=== PATIENT | male | born 1970 | race Caucasian/White ===

== ENCOUNTER 2017-04-15 07:51 | Emergency (ER) | payer BC ==
[2017-04-15 07:56] VITALS: BP 119/92; BMI 25.8
--- NOTE | 2017-04-15 08:25 | DR.GENAD ---
HPI - PCP Primary Care Physician: Emmanuel - Complaint/Symptoms Chief Complaint:: Pt is c/o flank pain, n/v, dirrhea, and upper stomach pain that started 2 days ago Self Treatment fo Chief Complaint: AZO - Nurses notes reviewed Nurses Notes Review: Yes - Source History Provided: Patient - Mode of Arrival Mode of Arrival: Ambulatory - Timing Onset of Chief Complaint: 04/13/17 Came on: Gradually - Duration Duration: Intermittent How lon Duration: Days - Location Location: stomach - Severity Severity: Moderate - Modifying Factors Worsens:: vomiting - Associated Signs and Symptoms Associated Signs and Symptoms: Vomiting and diarrhea - Other History Other History: Hiatal hernia, GERD PMH - PMH Past Medical History: Yes Past Medical History: GERD Past Surgical History: Yes Surgical History: Ortho Surgery, Tonsillectomy - Family History History of Family Medical Conditions: Yes Family Medical History: Diabetes Mellitus, Cancer, [place], Heart Failure, Hypertension - Social History Does patient currently use any type of tobacco product: Yes Have you used tobacco products in the last 12 months: Yes Type of Tobacco Use: Smokeless Does any household member use tobacco: No Alcohol Use: Rarely Do you use any recreational Drugs:: No Lives With: Family Lives Where: Home - infectious screening In the last 2 months have you had wt loss of >10#?: NO Have you had fever, night sweats or hemotysis?: No Have you traveled outside the country in the last 6 months?: No Isolation: Standard ROS - Review of Systems Constitutional: No Symptoms Reported Eyes: No Symptoms Reported ENTM: No Symptoms Reported Respiratoy: No Symptoms Reported Cardiovascular: No Symptoms Reported Gastrointestinal/Abdominal: Abdominal Pain, Diarrhea, Vomiting Genitourinary: No Symptoms Reported Neurological: No Symptoms Reported Musculoskeletal: No Symptoms Reported Integumentary: No Symptoms Reported Hematologic/Lymphatic: No Symptoms Reported Endocrine: No Symptoms Reported Psychiatric: No Symptoms Reported All Other Systems: Reviewed and Negative PE - Vital Signs Vitals: Temperature 97.5 F Pulse Rate 96 Respiratory Rate 18 Blood Pressure 119/92 O2 Sat by Pulse Oximetry 98 - General Limitations: No Limitations General Appearance: Alert, In No Apparent Distress - Head Head Exam: Normal Inspection - Eyes Eye exam: Normal Appearance, EOMI. negative: Scleral Icterus, Conjunctival Injection - ENT ENT Exam: Normal Exam, Normal Oropharynx External Ear Exam: Normal External Inspection Mouth Exam: Normal Inspection Throat Exam: Normal Inspection - Neck Neck Exam: Normal Inspection, Full ROM, Trachea Midline - Chest Chest Inspection: Normal Inspection - Respiratory Respiratory Exam: Normal Lung Sounds Bilat. negative: Accessory Muscle Use, Respiratory Distress Respiratory Exam: Bilateral Clear to Auscultation - Cardiovascular Cardiovascular Exam: Regular Rate - Abdominal Exam Abdominal Exam: Normal Inspection, Normal Bowel Sounds, Soft. negative: Distention, Tenderness, Guarding, Rebound Abdominal Tenderness: Epigastrium - Extremities Extremities Exam: Normal Inspection, Full ROM - Back Back Exam: Normal Inspection - Neurologic Neurological Exam: Alert, Oriented X3, CN II-XII Intact - Psychiatric Psychiatric Exam: Anxious - Skin Skin Exam: Intact, Normal Color ROR - Labs Reviewed Result Diagrams: 04/15/17 09:04/15/17 09: Laboratory: WBC 4.9 X10^3/uL (3.6-10.0) 04/15/17 09: RBC 4.90 X10^6/uL (4.7-6.0) 04/15/17: Hgb 14.1 g/dL (13.5-18.0) 04/15/17: Hct 41.8 % (42.0-54.0) L 04/15/17 09: MCV 85.2 fL (80.0-100.0) 04/15/17: MCH 28.9 pg (27.0-34.0) 04/15/17 09: MCHC 33.9 g/dL (33.0-35.0) 04/15/17: RDW 13.4 % (11.6-16.5) 04/15/17: Plt Count 198 X10^3/uL (150.0-450.0) 04/15/17: MPV 9.5 fL (7.4-11.0) 04/15/17: Neut % 63.6 % (42.0-75.0) 04/15/17: Lymph % 20.0 % (21.0-51.0) L 04/15/17: Otero % 13.4 % (0.0-13.0) H 04/15/17: Eos % 2.5 % (0.9-2.9) 04/15/17: Baso % 0.5 % (0.2-1.0) 04/15/17 09: Neut # 3.1 x10^3/uL (2.2-4.8) 04/15/17 09: Lymph # 1.0 X10^3/uL (1.3-2.9) L 04/15/17 09:17 Otero # 0.7 x10^3/uL (0.3-0.8) 04/15/17 09: Eos # 0.1 x10^3/uL (0.0-0.2) 04/15/17 09: Baso # 0.0 X10^3/uL (0.0-0.1) 04/15/17 09: Absolute Nucleated RBC 0.1 /100WBC 04/15/17 09: Sodium 141 mmol/L (136-145) 04/15/17 09:17 Corrected Sodium TNP 04/15/17 09: Potassium 3.8 mmol/L (3.5-5.1) 04/15/17 09: Chloride 106 mmol/L (98-107) 04/15/17 09:17 Carbon Dioxide 29.9 mmol/L (21-32) 04/15/17 09:17 BUN 12 mg/dL (7-18) 04/15/17 09:17 Creatinine 1.05 mg/dL (0.70-1.30) 04/15/17 09:17 Est GFR (MDRD) Af Amer > 60 (>60) 04/15/17 09:17 Est GFR (MDRD) Non-Af > 60 (>60) 04/15/17 09: Glucose 106 mg/dL (65-99) H 04/15/17 09:17 Calcium 8.5 mg/dL (8.5-10.1) 04/15/17 09:17 Corrected Calcium TNP 04/15/17 09:17 Total Bilirubin 0.60 mg/dL (0.2-1.0) 04/15/17 09:17 AST 21 Units/L (15-37) 04/15/17 09:17 ALT 34 Units/L (12-78) 04/15/17 09:17 Alkaline Phosphatase 80 Units/L (46-116) 04/15/17 09:17 Total Protein 6.8 g/dL (6.4-8.2) 04/15/17 09:17 Albumin 3.4 g/dL (3.4-5.0) 04/15/17 09:17 Globulin 3.4 g/dL (2.5-4.5) 04/15/17 09:17 Albumin/Globulin Ratio 1.0 Ratio (1.1-2.1) L 04/15/17 09:17 Amylase 33 Units/L (25-115) 04/15/17 09: Lipase 94 Units/L (73-393) 04/15/17 09:17 - XRAY XRAY Interpreted by: Radiologist XRAY Findings: AAS: normal - Diagnosis Discharge Problem: Gastroenteritis and colitis, viral - Discharge Plan Condition: Stable Prescriptions: Ondansetron [Zofran Odt] 4 mg PO Q8H PRN #12 tab PRN Reason: Nausea/Vomiting Sucralfate [Carafate Susp 1 gm/10 ml] 1 gm PO ACHS #420 ml - Follow ups/Referrals Follow ups/Referrals: Wisam Benitez [Primary Care Provider] - 3 days - Instructions
[2017-04-15] MEDS ORDERED: NS 1000 ML 1,000 ML IV ONE (08:37)
[2017-04-15] MEDS ORDERED: NS 1000 ML 1,000 ML ONE (08:48)
--- NOTE | 2017-04-15 08:56 | RAD ---
HISTORY: Abdominal pain Study: Acute abdominal series Comparison: None Findings: The trachea is midline. The cardiac silhouette is unremarkable. The lungs are clear without focal infiltrate or effusion. The bony thorax is unremarkable. Flat plate and upright evaluation of the abdomen demonstrates a normal bowel gas pattern. No pneumop eritoneum is identified.. No pathological soft tissue mass or calcification can be observed. The b singh structures are grossly intact. IMPRESSION: 1. No acute cardiopulmonary disease. 2. No evidence for acute abdominal pathology identified. Reported By:
[2017-04-15] MEDS ORDERED: PROTONIX INJ 40 MG VIAL IVP ONE (09:21)
[2017-04-15] MEDS ORDERED: ZOFRAN INJ 4 MG VIAL IVP ONE (09:21)
[2017-04-15] MEDS ORDERED: ZOFRAN INJ 4 MG VIAL ONE ×2 (09:33→09:35)
[2017-04-15] MEDS ORDERED: PROTONIX INJ 40 MG VIAL ONE ×2 (09:33→09:35)
[2017-04-15 09:36] LABS: ALANINE AMINOTRANSFERASE 34 Units/L (12-78); ALBUMIN 3.4 g/dL (3.4-5.0); ALKALINE PHOSPHATASE 80 Units/L (46-116); AMYLASE 33 Units/L (25-115); ASPARTATE AMINO TRANSFERASE 21 Units/L (15-37); BLOOD UREA NITROGEN 12 mg/dL (7-18); CALCIUM 8.5 mg/dL (8.5-10.1); CARBON DIOXIDE 29.9 mmol/L (21-32); CHLORIDE 106 mmol/L (98-107); CREATININE 1.05 mg/dL (0.70-1.30); GLUCOSE 106 mg/dL (65-99); LIPASE 94 Units/L (73-393); SODIUM 141 mmol/L (136-145); TOTAL PROTEIN 6.8 g/dL (6.4-8.2); eGFR BLACK RACES > 60 (>60); eGFR NON BLACK RACES > 60 (>60)
[2017-04-15 09:37] LABS: BASOPHILS % (AUTO) 0.5 % (0.2-1.0); EOSINOPHILS # (AUTO) 0.1 x10^3/uL (0.0-0.2); EOSINOPHILS % (AUTO) 2.5 % (0.9-2.9); HEMATOCRIT 41.8 % (42.0-54.0); HEMOGLOBIN 14.1 g/dL (13.5-18.0); MEAN CORPUSCULAR HEMOGLOBIN 28.9 pg (27.0-34.0); MEAN CORPUSCULAR HGB CONC 33.9 g/dL (33.0-35.0); MEAN CORPUSCULAR VOLUME 85.2 fL (80.0-100.0); MEAN PLATELET VOLUME 9.5 fL (7.4-11.0); MONOCYTES # (AUTO) 0.7 x10^3/uL (0.3-0.8); MONOCYTES % (AUTO) 13.4 % (0.0-13.0); NEUTROPHILS # (AUTO) 3.1 x10^3/uL (2.2-4.8); NEUTROPHILS % (AUTO) 63.6 % (42.0-75.0); PLATELET COUNT 198 X10^3/uL (150.0-450.0); RED CELL DISTRIBUTION WIDTH 13.4 % (11.6-16.5); WHITE BLOOD COUNT 4.9 X10^3/uL (3.6-10.0)
[2017-04-15 10:15] LABS: BILIRUBIN,URINE NEGATIVE (NEGATIVE); BLOOD/HEMOGLOBIN,URINE NEGATIVE (NEGATIVE); GLUCOSE, URINE NEGATIVE (NEGATIVE); KETONES,URINE NEGATIVE (NEGATIVE); LEUKOCYTE ESTERASE ,URINE NEGATIVE (NEGATIVE); NITRITES,URINE NEGATIVE (NEGATIVE); PROTEIN,URINE 1+ (NEGATIVE); UROBILINOGEN,URINE NORMAL (NORMAL)
[2017-04-15 10:25] LABS: APPEARANCE,URINE CLEAR (CLEAR); BACTERIA,URINE TRACE /HPF (NEGATIVE); COLOR,URINE YELLOW (YELLOW); RBC,URINE 0-1 /HPF (NEGATIVE); SQUAMOUS EPITHELIAL CELL,UR RARE /HPF (NEGATIVE)
== END 2017-04-15 11:09 | disposition home or self-care (01) ==
LOC: ER 08:11
DX: A08.4 Viral intestinal infection, unspecified (principal); R10.84 Generalized abdominal pain
CPT/HCPCS: 36415; 36600; 74022; 80053; 81001; 82150; 83690; 85025; 96365; 96374; 96375; 99283; A4216; A4222; C9113; J2405